=== PATIENT | male | born 1935 | race Caucasian/White ===

== ENCOUNTER → 2016-06-07 | Outpatient (CLI) | payer MEDICARE ==
[~2016-06-07] MED LIST: ASPI81TA82 PO; DIAZ2 PO; MACR100C PO; METO50CR PO
[2016-06-07 07:29] LABS: AUTOMATED NEUTROPHIL # 2.7 TH/MM3 (1.8-7.7); BASOPHIL % 0.7 % (0.0-2.0); EOSINOPHIL # 0.4 TH/MM3 (0-0.4); EOSINOPHIL % 6.3 % (0.0-4.0); HEMATOCRIT 44.8 % (39.0-51.0); HEMO FLAGS DIFF FINAL; LYMPH % 39.1 % (9.0-44.0); LYMPHOCYTE # 2.3 TH/MM3 (1.0-4.8); MONO % 8.7 % (0.0-8.0); NEUT % 45.2 % (16.0-70.0); PLATELET COUNT 116 TH/MM3 (150-450); RED BLOOD COUNT 4.62 MIL/MM3 (4.50-5.90); RED CELL DISTRIBUTION WIDTH 13.7 % (11.6-17.2)
[2016-06-07 07:30] LABS: ALT (GPT) 20 U/L (12-78); ANION GAP 8 MEQ/L (5-15); AST (GOT) 15 U/L (15-37); BICARBONATE 29.9 MEQ/L (21.0-32.0); BLOOD UREA NITROGEN 18 MG/DL (7-18); CHLORIDE 104 MEQ/L (98-107); GLOMERULAR FILTRATION RATE 51 ML/MIN (>89); GLUCOSE,FASTING 106 MG/DL (74-99); POTASSIUM 4.3 MEQ/L (3.5-5.1); SODIUM (NA) 142 MEQ/L (136-145)
[2016-06-07 07:33] LABS: ALKALINE PHOSPHATASE 67 U/L (45-117); CREATINE KINASE 106 U/L (39-308); HDL CHOLESTEROL 67.9 MG/DL (40.0-60.0); LDL CHOLESTEROL 108 MG/DL (0-99); TOTAL BILIRUBIN ADULT 1.1 MG/DL (0.2-1.0)
[2016-06-07 07:40] LABS: FREE T3 2.78 PG/ML (2.18-3.98); FREE T4 0.77 NG/DL (0.76-1.46)
== END ==
LOC: CLAB 06:43
PROVIDERS: ATTEND Internal Medicine Interventional Cardiology
DX: R06.02 Shortness of breath (principal); E78.5 Hyperlipidemia, unspecified; I10 Essential (primary) hypertension; I25.10 Atherosclerotic heart disease of native coronary artery without angina pectoris; E03.9 Hypothyroidism, unspecified; Z09 Encounter for follow-up examination after completed treatment for conditions other than malignant neoplasm; Z79.899 Other long term (current) drug therapy
CPT/HCPCS: 36415; 80053; 80061; 82248; 82550; 84439; 84443; 84481; 85025

== ENCOUNTER → 2016-12-10 | Outpatient (CLI) | payer MEDICARE ==
[~2016-12-10] MED LIST changes: +ASPI81CH37 CHEW; +ERYTOIN10 EACH EYE; +LOSA50TA PO; +RAPA4CAP PO
[2016-12-10 07:54] LABS: AUTOMATED NEUTROPHIL # 2.6 TH/MM3 (1.8-7.7); BASOPHIL % 0.8 % (0.0-2.0); EOSINOPHIL # 0.3 TH/MM3 (0-0.4); EOSINOPHIL % 6.2 % (0.0-4.0); HEMO FLAGS DIFF FINAL; LYMPH % 37.8 % (9.0-44.0); MEAN CELL VOLUME 97.6 FL (80.0-100.0); MEAN CORPUSCULAR HGB CONC 34.8 % (32.0-36.0); MONO % 7.8 % (0.0-8.0); NEUT % 47.4 % (16.0-70.0); PLATELET COUNT 127 TH/MM3 (150-450); RED CELL DISTRIBUTION WIDTH 13.1 % (11.6-17.2); WHITE BLOOD COUNT 5.4 TH/MM3 (4.0-11.0)
[2016-12-10 13:09] LABS: ANION GAP 6 MEQ/L (5-15); AST (GOT) 22 U/L (15-37); BICARBONATE 30.5 MEQ/L (21.0-32.0); BLOOD UREA NITROGEN 21 MG/DL (7-18); CHLORIDE 103 MEQ/L (98-107); GLOMERULAR FILTRATION RATE 59 ML/MIN (>89); GLUCOSE,FASTING 104 MG/DL (74-99); POTASSIUM 4.4 MEQ/L (3.5-5.1); SODIUM (NA) 139 MEQ/L (136-145)
[2016-12-10 13:10] LABS: ALT (GPT) 19 U/L (12-78)
[2016-12-10 13:19] LABS: ALKALINE PHOSPHATASE 67 U/L (45-117); FREE T3 2.81 PG/ML (2.18-3.98); FREE T4 0.76 NG/DL (0.76-1.46); HDL CHOLESTEROL 68.2 MG/DL (40.0-60.0); LDL CHOLESTEROL 116 MG/DL (0-99); TOTAL BILIRUBIN ADULT 0.7 MG/DL (0.2-1.0)
== END ==
LOC: CLAB 07:21
PROVIDERS: ATTEND Internal Medicine Interventional Cardiology
DX: E03.9 Hypothyroidism, unspecified (principal); I10 Essential (primary) hypertension; I25.10 Atherosclerotic heart disease of native coronary artery without angina pectoris; N19 Unspecified kidney failure; R06.02 Shortness of breath; E78.5 Hyperlipidemia, unspecified; Z09 Encounter for follow-up examination after completed treatment for conditions other than malignant neoplasm; Z79.899 Other long term (current) drug therapy
CPT/HCPCS: 36415; 80053; 80061; 82248; 82550; 84439; 84443; 84481; 85025

== ENCOUNTER 2017-01-09 21:18 | Emergency (ER) | payer MEDICARE ==
[~2017-01-09 21:18] MED LIST changes: -ASPI81CH37 CHEW; -ERYTOIN10 EACH EYE; -LOSA50TA PO; -RAPA4CAP PO
[2017-01-09 21:20] VITALS: BP 220/107; PULSE 78; RESP 20; TEMP 97.8
[2017-01-09] MEDS ORDERED: LOSA50TA PO (21:37)
[2017-01-09] MEDS ORDERED: ASPI81CH37 CHEW (21:39)
[2017-01-09] MEDS ORDERED: RAPA4CAP PO (21:39)
--- NOTE | 2017-01-09 22:13 | PD ---
HPI Chief Complaint: Eye Problems/Injury Time Seen by Provider: 22:13 Travel History International Travel<30 days: No Contact w/Intl Traveler<30days: No Traveled to known affect area: No History of Present Illness HPI 81-year-old female presents to emergency department for evaluation of his right eye after splashing grease about one week ago. States his vision is 20/20. He says the eye is uncomfortable but denies pain. Denies fever, chills, blurred vision, dizziness, headache, chest pain, shortness of breath, nausea, vomiting, diarrhea. He has had cataract surgery prior. No history of glaucoma. No contact lens use. PFSH Past Medical History Hx Anticoagulant Therapy: Yes (ASA) Cancer: Yes (SKIN) Cardiac Catheterization: Yes (STENTS X2) Cardiovascular Problems: Yes ([place] 10 yrs ago. w 2 stents) High Cholesterol: Yes Chest Pain: Yes Cerebrovascular Accident: Yes Coronary Artery Disease: Yes Diminished Hearing: No Hypertension: Yes Myocardial Infarction: Yes Tetanus Vaccination: < 5 Years Influenza Vaccination: No Past Surgical History Appendectomy: Yes Eye Surgery: Yes (CATERACT) Other Surgery: Yes (SKIN CANCER REMOVAL) Social History Alcohol Use: Yes (2 glasses of wine DAILY) Tobacco Use: No (quit 60 years ago) Substance Use: No Allergies-Medications (Allergen,Severity, Reaction): Coded Allergies: cephalexin (Verified Allergy, Severe, SHAKING, 01/09/17) enoxaparin (Verified Allergy, Severe, SHAKING, 01/09/17) heparin (porcine) (Verified Allergy, Severe, SHAKING, 01/09/17) penicillin G (Verified Allergy, Severe, Anaphylaxis, 01/09/17) Reported Meds & Prescriptions Reported Meds & Active Scripts Active Erythromycin Opth Oint 5 Mg/Gm Oint 1 Applic EACH EYE BID 7 Days Reported Rapaflo (Silodosin) 4 Mg Cap 4 Mg PO DAILY Aspirin Low Dose (Aspirin) 81 Mg Chew 81 Mg CHEW DAILY Losartan (Losartan Potassium) 50 Mg Tab 50 Mg PO DAILY PRN Review of Systems Except as stated in HPI: all other systems reviewed are Neg Physical Exam Narrative GENERAL: Well-nourished, well-developed patient. SKIN: Focused skin assessment warm/dry. HEAD: Normocephalic. EYES: No scleral icterus. No discharge. EOMI, PERRLA. Right eye: mild scleral injection. Fluorescein stain: scant uptake in the lateral sclera. NECK: Supple, trachea midline. No JVD or lymphadenopathy. CARDIOVASCULAR: Regular rate and rhythm without murmurs, gallops, or rubs. RESPIRATORY: Breath sounds equal bilaterally. No accessory muscle use. MUSCULOSKELETAL: No cyanosis, or edema. BACK: Nontender without obvious deformity. No CVA tenderness. Data Data Last Documented VS Vital Signs Date Time Temp Pulse Resp B/P (MAP) Pulse Ox O2 Delivery O2 Flow Rate FiO2 01/09/17 21:20 97.8 78 20 220/107 (144) Orders Orders Proparacaine 0.5% Opth Soln (Alcaine 0.5 (01/09/17 22:15) Ed Discharge Order (01/09/17 22:41) [facility] Medical Decision Making Medical Screen Exam Complete: Yes Emergency Medical Condition: Yes Differential Diagnosis Corneal abrasion versus laceration versus keratitis Narrative Course 81-year-old female presents to the emergency department complaining of right eye discomfort for one week after splashing some hot grease into his eye. Denies visual changes, headache, dizziness, eye pain. He has no history of glaucoma. He has had cataract surgery bilateral eyes. No neuro deficits. Physical exam demonstrates scant increased uptake of fluorescein stain lateral sclera, approximately 9:00 position, 1-2 mm round lesion with conjunctivitis. Based off the mechanism of injury and physical exam findings, patient has a conjunctivitis with possible scleral involvement. Family advised patient to follow up with the sales project administrator Tuesday or Tuesday this week for further evaluation. Use antibiotics as prescribed. Diagnosis Primary Impression: Conjunctivitis Qualified Codes: H10.31 - Unspecified acute conjunctivitis, right eye Referrals: [employer] [employer] [facility] Additional Instructions: Return to the eye doctor within 1-3 days. Use ointment as prescribed. If you develop increased redness, swelling, or blurred vision, return to the ED. Scripts Erythromycin Opth Oint (Erythromycin Opth Oint) 5 Mg/Gm Oint 1 APPLIC EACH EYE BID for Infection for 7 Days, #1 TUBE 0 Refills Prov: Jose Reich MD 01/09/17 Disposition: 01 DISCHARGE HOME Condition: Stable Kallie Granda Jan 09, 2017 22:12
[2017-01-09] MEDS ORDERED: PROPARACAINE HCL 0.5% OPHT SOLN 15 ML BTL EACH EYE ONE (22:15)
[2017-01-09] MEDS ORDERED: ERYTOIN10 EACH EYE (22:35)
== END 2017-01-09 22:52 | disposition home or self-care (01) ==
LOC: PHEFT 21:18
DX: H10.31 Unspecified acute conjunctivitis, right eye (principal)
CPT/HCPCS: 99283

== ENCOUNTER → 2017-06-13 | Outpatient (CLI) | payer MEDICARE ==
[~2017-06-13] MED LIST changes: +ASPI81CH6 CHEW; -ASPI81TA82 PO; -DIAZ2 PO; +ERYTOIN10 EACH EYE; +LOSA50TA PO; -MACR100C PO; -METO50CR PO; +RAPA4CAP PO
[2017-06-13 08:24] LABS: AUTOMATED NEUTROPHIL # 2.6 TH/MM3 (1.8-7.7); BASOPHIL % 0.6 % (0.0-2.0); EOSINOPHIL # 0.2 TH/MM3 (0-0.4); EOSINOPHIL % 4.3 % (0.0-4.0); HEMATOCRIT 45.1 % (39.0-51.0); HEMOGLOBIN 15.7 GM/DL (13.0-17.0); LYMPH % 39.7 % (9.0-44.0); LYMPHOCYTE # 2.1 TH/MM3 (1.0-4.8); MEAN CELL VOLUME 97.5 FL (80.0-100.0); MEAN CORPUSCULAR HEMOGLOBIN 33.9 PG (27.0-34.0); MEAN CORPUSCULAR HGB CONC 34.8 % (32.0-36.0); MEAN PLATELET VOLUME 9.8 FL (7.0-11.0); MONO % 7.4 % (0.0-8.0); MONOCYTE # 0.4 TH/MM3 (0-0.9); PLATELET COUNT 128 TH/MM3 (150-450); RED BLOOD COUNT 4.63 MIL/MM3 (4.50-5.90); RED CELL DISTRIBUTION WIDTH 13.6 % (11.6-17.2); WHITE BLOOD COUNT 5.4 TH/MM3 (4.0-11.0)
[2017-06-13 08:49] LABS: ALT (GPT) 11 U/L (12-78); AST (GOT) 19 U/L (15-37); BICARBONATE 29.8 MEQ/L (21.0-32.0); BLOOD UREA NITROGEN 18 MG/DL (7-18); CALCIUM 8.5 MG/DL (8.5-10.1); CHLORIDE 107 MEQ/L (98-107); CHOLESTEROL 203 MG/DL (120-200); CREATININE 1.31 MG/DL (0.60-1.30); GLOMERULAR FILTRATION RATE 52 ML/MIN (>89); GLUCOSE,FASTING 101 MG/DL (74-99); SODIUM (NA) 143 MEQ/L (136-145)
[2017-06-13 08:58] LABS: ALKALINE PHOSPHATASE 61 U/L (45-117); CHOLESTEROL/ HDL RATIO 2.69 RATIO; FREE T3 2.77 PG/ML (2.18-3.98); FREE T4 0.76 NG/DL (0.76-1.46); HDL CHOLESTEROL 75.3 MG/DL (40.0-60.0); LDL CHOLESTEROL 113 MG/DL (0-99); TOTAL BILIRUBIN ADULT 0.9 MG/DL (0.2-1.0); TOTAL PROTEIN 6.7 GM/DL (6.4-8.2); TRIGLYCERIDES 75 MG/DL (42-150)
[2017-06-15 19:09] LABS: HEMOGLOBIN A1C 5.7 % (4.3-6.0)
== END ==
LOC: CLAB 07:54
PROVIDERS: ATTEND Family Medicine
DX: I25.10 Atherosclerotic heart disease of native coronary artery without angina pectoris (principal); R73.9 Hyperglycemia, unspecified; I10 Essential (primary) hypertension; E03.9 Hypothyroidism, unspecified; N19 Unspecified kidney failure
CPT/HCPCS: 36415; 80053; 80061; 83036; 84439; 84443; 84481; 85025